=== PATIENT | female | born 1950 | race Caucasian/White ===

== ENCOUNTER 2021-06-19 11:48 | Outpatient (CLI) | payer MEDICARE, SELFPAY ==
--- NOTE | 2021-06-19 12:57 | ECG_ITS ---
Measurements Intervals [facility] Rate: 82 P: 58 NE: 180 QRS: 13 QRSD: 107 T: 11 QT: 390 QTc: 457 Interpretive Statements SINUS RHYTHM POSSIBLE LEFT ATRIAL ENLARGEMENT INCOMPLETE RIGHT BUNDLE BRANCH BLOCK BASELINE ARTIFACT- I, II, III, AVR, AVL BORDERLINE ECG Electronically Signed On 06-19-2021 13:10:51 CDT by Lamberto Zamora D.O.
[2021-06-19 13:25] LABS: Basophils Percent Auto 0.4 % (0.2-1.2); Eosinophils Absolute Auto 0.1 K/mm3 (0-0.3); Eosinophils Percent Auto 2.6 % (0-4.4); Hematocrit 39.9 % (37.0-47.0); Hemoglobin 13.1 g/dL (12.0-15.0); Immature Granulocyte Absolute 0.01 K/mm3 (0.00-0.031); Immature Granulocyte Percent A 0.2 % (0-0.5); Lymphocytes Absolute Auto 1.38 K/mm3 (0.9-3.2); Lymphocytes Percent Auto 27.4 % (18.3-44.2); Mean Corpuscular HGB Conc 32.8 g/dl (32-36); Mean Corpuscular Volume 97.3 fl (80-100); Monocytes Absolute Auto 0.4 K/mm3 (0.1-0.6); Monocytes Percent Auto 8.3 % (2.6-8.5); Neutrophils Absolute Auto 3.1 K/mm3 (1.3-6.7); Neutrophils Percent Auto 61.1 % (45.5-73.1); Platelet Count Result 193 k/mm3 (150-375); Red Cell Distribution Width 12.5 % (11.5-14.5)
[2021-06-19 13:38] LABS: Alanine Aminotransferase 29 U/L (4-35); Albumin Level 4.2 g/dL (3.5-5.1); Alkaline Phosphatase 136 U/L (38-126); Anion Gap 13 mmol/L (8-16); Aspartate Amino Transferase 32 U/L (14-36); Bilirubin,Total 0.6 mg/dL (0.2-1.3); Blood Urea Nitrogen 15 mg/dL (7-17); Calcium 9.5 mg/dL (8.4-10.2); Carbon Dioxide 27 mmol/L (22-30); Chloride 104 mmol/L (98-107); Estimated Glomerular Filt Rate > 60; Glucose 91 mg/dL (65-110); Potassium 3.8 mmol/L (3.4-5.0); Sodium 144 mmol/L (137-145)
[2021-06-19 13:42] LABS: INR 0.8; Prothrombin Time 11.4 Seconds (11.1-14.7)
[2021-06-19 13:43] LABS: Partial Thromboplastin Time 32.1 SECONDS (22.3-36.8)
== END 2021-06-19 11:49 | disposition home or self-care (01) ==
LOC: ANHSURGERY 12:01
PROVIDERS: Visit Provider Urology
DX: Z01.818 Encounter for other preprocedural examination (principal); N81.4 Uterovaginal prolapse, unspecified; E78.5 Hyperlipidemia, unspecified; I45.10 Unspecified right bundle-branch block; Z51.81 Encounter for therapeutic drug level monitoring; Z79.899 Other long term (current) drug therapy
CPT/HCPCS: 36415; 80053; 85025; 85610; 85730; 86850; 86900; 86901; 87086; 87088; 93005

== ENCOUNTER 2021-07-01 01:38 | Day surgery (SDC) | payer MEDICARE, SELFPAY ==
[2021-06-19 12:05] VITALS: BP 182/84; PULSE 92; RESP 16; TEMP 37.2; O2SAT 98
[2021-06-19 12:22] VITALS: BMI 34.4
--- NOTE | 2021-06-26 07:50 | PM.IMHP ---
H&P: HPI History of Present Illness Date/Time: 06/26/21 07:50 Year-old 7 para 3 admitted for robotic total vaginal hysterectomy bilateral salpingo-oophorectomy secondary to uterine prolapse. She has seen Dr. ramirez 2 plan sacral colpopexy as well. She has a prolapse and risks and benefits reviewed in great detail Chief Complaint: uterine prolapse Review of Systems Review of Systems: All systems reviewed & are unremarkable except as noted in HPI and below PMFSH Social History Social History Smoking packs per day: 1 Smoking cigarettes per day: 20.0 Years smoked: 7 Smoking pack-years: 7.00 Smoking status: Former smoker Smoking end date: 06/19/85 Alcohol intake: current Spiritual care concerns: No Meds Home Medications and Allergies Home Medications Medication Instructions Recorded Confirmed Type Lactobac 40-Bifido 3-S.thermop 1 cap PO DAILY 06/19/21 06/19/21 History [Probiotic] cholecalciferol (vitamin D3) 125 mcg PO DAILY 06/19/21 06/19/21 History [Vitamin D3] docusate sodium [Colace] 100 mg PO DAILY 06/19/21 06/19/21 History meloxicam 7.5 mg PO HS 06/19/21 06/19/21 History omeprazole 40 mg PO QAM 06/19/21 06/19/21 History simvastatin 20 mg PO HS 06/19/21 06/19/21 History terbinafine HCl 250 mg PO HS 06/19/21 06/19/21 History thyroid (pork) [Verdi Thyroid] 90 mg PO QAM 06/19/21 06/19/21 History xydwzbb-tldn-qchfz-oreg-capryl 1 cap PO DAILY 06/19/21 06/19/21 History vitamin B comp with C no.4 1 tablet PO DAILY 06/19/21 06/19/21 History Allergies Allergy/AdvReac Type Severity Reaction Status Date / Time adhesive Allergy Mild Itching Verified 06/19/21 12:13 nickel Allergy Mild Itching Verified 06/19/21 12:13 sulfamethoxazole Allergy Mild Itching Verified 06/19/21 12:13 [From Bactrim] trimethoprim [From Bactrim] Allergy Mild Itching Verified 09/01/21 12:13 Exam Const: General: no acute distress Eyes: General: appearance normal, both eyes and all related structures Neck: Neck: supple and no JVD Thyroid: thyroid normal Resp: Effort & Inspection: normal respiratory effort Auscultation: clear to auscultation bilaterally Cardio: Rate: regular rate Rhythm: regular rhythm GI: Inspection: non-distended GI Palp: Yes Soft to palpation, No Tenderness to palpation present (GI) and No Guarding due to palpation present (GI) Auscultation: normal bowel sounds : External Female Exam: normal external appearance Speculum Exam - Vagina: normal appearance of the vagina Bimanual exam- vagina & uterus: uterine shape normal and Uterus displaced ( prolapse is) Skin: General skin exam: no rashes or lesions noted Extrem: General: normal to inspection and no edema Psych: Mental Status: mental status grossly normal Affect: normal affect Assessment and Plan Additional Plan impression: Uterine prolapse Plan: Robotic supracervical hysterectomy bilateral salpingo-oophorectomy
--- NOTE | 2021-06-28 15:56 | WPDANESEPPF ---
Anes - Initial Pre Proc Eval Procedure: Operation Date: 07/01/21 07:30 Proposed Procedures p Robotic Sacrocolpopexy - Vj Xavier MD s Urethral Sling - Vj Xavier MD s Robotic Assisted Supracervical Hysterectomy with Bilateral Salpingo Oophorectomy - Isaiah Ray MD Date/Time: 06/28/21 15:56 Surgeon: Vj Xavier MD Pre Op Diagnosis: complete uterine prolapse , stress incontience Patient Data Age: 71 Gender: F Height: 1.57 m Weight: 85.6 kg Last Vital Signs Temp 37.2 C 06/19/21 12:05 Pulse 92 06/19/21 12:05 Resp 16 06/19/21 12:05 BP 182/84 H 06/19/21 12:05 Pulse Ox 98 06/19/21 12:05 Allergies Allergy/AdvReac Type Severity Reaction Status Date / Time adhesive Allergy Mild Itching Verified 06/19/21 12:13 nickel Allergy Mild Itching Verified 06/19/21 12:13 sulfamethoxazole Allergy Mild Itching Verified 06/19/21 12:13 [From Bactrim] trimethoprim [From Bactrim] Allergy Mild Itching Verified 06/19/21 12:13 Home Medications Medication Instructions Recorded Confirmed Type Lactobac 40-Bifido 3-S.thermop 1 cap PO DAILY 06/19/21 06/19/21 History [Probiotic] cholecalciferol (vitamin D3) 125 mcg PO DAILY 06/19/21 06/19/21 History [Vitamin D3] docusate sodium [Colace] 100 mg PO DAILY 06/19/21 06/19/21 History meloxicam 7.5 mg PO HS 06/19/21 06/19/21 History omeprazole 40 mg PO QAM 06/19/21 06/19/21 History simvastatin 20 mg PO HS 06/19/21 06/19/21 History terbinafine HCl 250 mg PO HS 06/19/21 06/19/21 History thyroid (pork) [Tyrone Thyroid] 90 mg PO QAM 06/19/21 06/19/21 History tghnwxc-bzza-ajowq-oreg-capryl 1 cap PO DAILY 06/19/21 06/19/21 History vitamin B comp with C no.4 1 tablet PO DAILY 06/19/21 06/19/21 History Patient hx anesthesia problems: none Family hx anesthesia problems: none COUNTS INCLUDE 234 BEDS AT THE [facility] Past Medical History Medical History (Updated 06/28/21 @ 15:57 by Juan Nava DO) Hyperlipidemia Hypertension Hypothyroidism Osteoarthritis PONV (postoperative nausea and vomiting) SLE (systemic lupus erythematosus related syndrome) Social History Social History Smoking packs per day: 1 Smoking cigarettes per day: 20.0 Years smoked: 7 Smoking pack-years: 7.00 Smoking status: Former smoker Smoking end date: 06/19/85 Alcohol intake: current Living arrangements: with family Spiritual care concerns: No Anes - Eval Final PreProcedure Day of Procedure 06/28/21 15:56 Patient weight: obese Heart: regular rate and rhythm Lungs: clear to auscultation and normal air movement Airway: Mallampati scale class II Neurological: alert and oriented Last oral intake: >/= 8 hours ASA classification: III Emergent: no Anesthetic plan: proceed Anesthesia type and monitoring: general ETT and standard monitoring Informed Consent: The patient's anesthetic plan and its attendant risks and benefits were discussed with the patient/family/POA. Questions were solicited and answers provided to the satisfaction of the patient/family/POA.
[2021-07-01] VITALS (18 sets, daily range): BP systolic 157–202; BP diastolic 75–105; PULSE 84–110; RESP 13–20; TEMP 36.2–36.6; O2SAT 93–100
--- NOTE | 2021-07-01 06:31 | WPDHPUPDATE1 ---
History and Physical Update Update Date/Time: 07/01/21 06:31 History and Physical has been reviewed, including an updated exam of the patient. There are NO changes in the patient's condition. Risks, benefits, and alternatives have been discussed and questions answered. Patient agrees to proceed with procedure.
[2021-07-01] MEDS: LACTATED RINGERS 1,000 ML 30 ML IV CONT ×2 (06:35→10:28)
[2021-07-01] MEDS: KETOROLAC 15 MG/ML VIAL (*BKC) IV PUSH (06:43)
[2021-07-01] MEDS: ACETAMINOPHEN 500 MG TABLET 1000 MG PO (06:43)
--- NOTE | 2021-07-01 07:19 | PM.IMHP ---
H&P: HPI History of Present Illness Date/Time: 07/01/21 07:19 Uterine prolapse. Previous POP repair ? mesh. No tasha Chief Complaint: uterine prolapse Review of Systems Review of Systems: All systems reviewed & are unremarkable except as noted in HPI and below [facility] Past Medical History Medical History (Updated 07/01/21 @ 07:21 by Vj Xavier MD) Hyperlipidemia Hypertension Hypothyroidism Osteoarthritis PONV (postoperative nausea and vomiting) SLE (systemic lupus erythematosus related syndrome) Social History Social History Smoking packs per day: 1 Smoking cigarettes per day: 20.0 Years smoked: 7 Smoking pack-years: 7.00 Smoking status: Former smoker Smoking end date: 06/19/85 Alcohol intake: current Living arrangements: with family Spiritual care concerns: No Meds Home Medications and Allergies Home Medications Medication Instructions Recorded Confirmed Type Lactobac 40-Bifido 3-S.thermop 1 cap PO DAILY 06/19/21 06/19/21 History [Probiotic] cholecalciferol (vitamin D3) 125 mcg PO DAILY 06/19/21 06/19/21 History [Vitamin D3] docusate sodium [Colace] 100 mg PO DAILY 06/19/21 06/19/21 History meloxicam 7.5 mg PO HS 06/19/21 06/19/21 History omeprazole 40 mg PO QAM 06/19/21 06/19/21 History simvastatin 20 mg PO HS 06/19/21 06/19/21 History terbinafine HCl 250 mg PO HS 06/19/21 06/19/21 History thyroid (pork) [Lomira Thyroid] 90 mg PO QAM 06/19/21 06/19/21 History nryudus-uuhg-ihbed-oreg-capryl 1 cap PO DAILY 06/19/21 06/19/21 History vitamin B comp with C no.4 1 tablet PO DAILY 06/19/21 06/19/21 History Allergies Allergy/AdvReac Type Severity Reaction Status Date / Time adhesive Allergy Mild Itching Verified 06/19/21 12:13 nickel Allergy Mild Itching Verified 06/19/21 12:13 sulfamethoxazole Allergy Mild Itching Verified 06/19/21 12:13 [From Bactrim] trimethoprim [From Bactrim] Allergy Mild Itching Verified 06/19/21 12:13 Exam Const: General: cooperative and healthy appearing HENMT: Head: normal to inspection Mouth: Yes Normal oral and palatal mucosa present Eyes: General: appearance normal, both eyes and all related structures Resp: Effort & Inspection: normal respiratory effort, able to speak in complete sentences and no cough GI: Inspection: normal to inspection : Bimanual Exam- Adnexa, other: No apex supported and vaginal apex descent (+3) Back/Spine/Pelvis: Back: no CVA tenderness Skin: General skin exam: normal color and no rashes or lesions noted Neuro: General: patient oriented x3 Assessment and Plan Assessment and plan (1) Uterine prolapse: Code(s): N81.4 - Uterovaginal prolapse, unspecified Status: Acute Assessment and Plan: Robotic Sacral Colpopexy
--- NOTE | 2021-07-01 07:22 | WPDHPUPDATE1 ---
History and Physical Update Update Date/Time: 07/01/21 07:22 History and Physical has been reviewed, including an updated exam of the patient. There are NO changes in the patient's condition. Risks, benefits, and alternatives have been discussed and questions answered. Patient agrees to proceed with procedure.
[2021-07-01] MEDS: SCOPOLAMINE 1.5 MG PATCH TRANSDERM (07:30)
[2021-07-01] MEDS: FAMOTIDINE 20 MG/2 ML VIAL IV PUSH (07:30)
[2021-07-01] MEDS: ceFAZolin 2 GM/D5W 50 ML 2 GM/50 ML BAG IVPB (07:35)
[2021-07-01] MEDS: metroNIDAZOLE 500 MG/ISO 100ML 500 MG/100 ML BAG 100 MG IVPB (07:40)
--- NOTE | 2021-07-01 08:39 | W.PM.PROC2 ---
Procedure Note - Detailed Date of Procedure 07/01/21 Pre-op Diagnosis complete uterine prolapse , stress incontience Post-op Diagnosis same Procedure Performed Robotic supracervical hysterectomy and bilateral salpingo-oophorectomy Surgeon Isaiah Ray MD Anesthesia general Indications This is a 71-year-old female with complete uterine prolapse admitted for combination procedure with Dr. ramirez Findings Complete prolapse uterus and cervix. Normal-appearing ovaries and tubes Description of Procedure The patient was prepped draped in the normal sterile fashion and placed in the dorsal lithotomy position. Under excellent general endotracheal anesthesia weighted speculum placed in posterior fornix vagina. Anterior lip of the cervix grasped with a single-tooth tenaculum and the Barnes's cannula inserted to the cervix and attached to the single-tooth. This was placed to help with uterine manipulation. A 16 Barbadian catheter was then placed in the bladder and drained of clear urine. Dr. ramirez proceeded to dock the robot. Please see his operative report for full details Once the robot had been docked an area in the left lower quadrant with omentum stuck to the anterior abdominal wall were sharply dissected to help with visualization. The left round ligament was grasped, burned, cut. Anteriorly a bladder flap was formed by sharply dissecting the peritoneum and wrist flexing the bladder caudally from the uterus and cervix to the opposite round ligament. This was then clamped, burned, cut. Next the infundibulopelvic structures on the left were clamped, burned, cut and brought to the level of the previously cut round ligament. In like fashion remove the right ovary and tube the infundibulopelvic structures were skeletonized. They were clamped, burned, cut and brought to the level previously cut round ligament. Next the cardinal and broad ligaments on the left were serially skeletonized clamped burned and cut. These were brought down the lateral edge of the uterus until the vessels on the left could be seen. There were large and tortuous and these were individually clamped,, cut. In like fashion the cardinal ligaments on the right were serially skeletonized clamped, burned, cut and brought down the lateral edge of the uterus and cervix until the vessels on the right could be these were individually clamped, burned, cut. Blanching of the uterus was noted and a supracervical incision made. The uterus ovaries and tubes were then placed in an Endo-Catch. Hemostasis was assured and blood loss estimated at25cc to this point. There were no complications up to this point. Dr. ramirez took over from there. Please see his operative report for the remainder of the procedure Estimated Blood Loss 25 Drains No Packing No Pathology yes Complications No immediate complications Condition stable Disposition no change
[2021-07-01] MEDS: BUPIVACAINE/EPINEPHRINE 0.5% 30 ML VIAL 8 ML INFILTRATE (10:00)
--- NOTE | 2021-07-01 10:14 | W.PM.PROC2 ---
Procedure Note - Detailed Date of Procedure 07/01/21 Pre-op Diagnosis complete uterine prolapse , female perineal laxity Post-op Diagnosis same Procedure Performed robotic assisted laparoscopic sacral colpopexy perineal repair /perineoplasty cystoscopy Surgeon Vj Xavier MD Anesthesia general Indications this is a woman with uterine prolapse, stress incontinence, and female perineal laxity. They present for surgery. She has had a previous vaginal repair with mesh augmentation. They understand risks of bleeding, infection, damage to surrounding organs, damage to the bowel or urinary tract, diskitis, recurrence of prolapse, new onset stress incontinence, vaginal or urinary tract mesh exposure, obstructive voiding requiring secondary procedure, hip and leg pain, dyspareunia, and other perioperative intraoperative and postoperative complications. They agreed to proceed. Findings See dictation Description of Procedure She was correctly identified. Informed consent is obtained. She was brought to the operating room. She was given general anesthesia. She was placed in the dorsal lithotomy position. All pressure points were padded. She was given appropriate perioperative antibiotics. A time-out was performed. I anesthetized the skin 3 fingerbreadths cephalad to the umbilicus. I incised the skin. I grasped the fascia with Ronna clamps. I entered the fascia sharply in a Hason type technique. I placed Vicryl sutures for later fascial closure. the midline trocar was placed. Under direct vision 2 additional trocars were placed in the right and left upper quadrant. She was placed in steep Trendelenburg. The robot was docked. I turned her over to her warp tying machine tender for their portion of the procedure. That will be dictated in a separate op note. I then sat at the console. With a Sizer in the vagina I created a plane on the anterior and posterior vaginal wall for several cm taking great care not to injure the vagina bladder or rectum. There was quite a bit of scarring on the anterior vaginal wall. Mesh was encountered. It was not excised or disturbed. I also encountered mesh on the posterior vaginal wall as well. There was no sign of any bladder or vaginal injury. There is no sign of any rectal injury. I introduced the mesh into the abdomen. I sewed the anterior leaf of the mesh on the anterior vaginal wall and the posterior leaflet of mesh on the posterior vaginal wall with multiple sutures of 2 0 Lincoln-Julien taking great care not to go through and through. I reflected the colon laterally. I opened up the posterior peritoneum over the sacral promontory and carried this incision into the cul-de-sac. I freed up the edges for later retroperitonealization of the mesh. I located the anterior longitudinal ligament of the sacrum. It was cleaned off of all fatty tissues. I tensioned my mesh appropriately. I went to the bedside to perform a vaginal exam. There was good apical support without undue tension. I then sewed the proximal leaflet of mesh onto the anterior longitudinal ligament with several sutures of 2 0 Lincoln-Julien. I then used a 2 0 Monocryl to meticulously retroperitonealized all mesh. I allowed the colon to go back into its normal anatomic location. There is no signs of any impingement. The specimen was extracted. The abdomen was exited. Fascial sutures were closed. Wounds were irrigated. Skin was closed with Monocryl as well as surgical glue. She was then repositioned and prepped for perineal surgery. I anesthetized the mona-shaped area of skin on the perineum. I removed this area of skin. I performed a classic perineal repair with 0 Vicryl suture. I used a 2 0 Vicryl to close the mucosa. There was excellent perineal support without undue narrowing of the vagina. I then performed cystoscopy. The bladder was examined. There is no surgical artifact or tumors within the bladder. Both ureteral orifices
[2021-07-01] MEDS: ONDANSETRON INJ 4 MG/2 ML VIAL IV PUSH (10:42)
[2021-07-01] MEDS: fentaNYL CITRATE INJ (*CRX) 100 MCG/2 ML VIAL 25 MCG IV PUSH ×5 (10:43→12:12)
[2021-07-01] MEDS: diphenhydrAMINE HCl INJ 50 MG/ML VIAL 25 MG IV PUSH ×2 (11:04→11:17)
[2021-07-01] MEDS: oxyCODONE HCL (*CRX) 5 MG TAB IR PO (13:09)
[2021-07-01] MEDS: LABETALOL HCL INJ 100 MG/20 ML VIAL IV PUSH (14:16)
--- NOTE | 2021-07-01 15:00 | SUR.PHASEII ---
1500 -dr. brand called and aware of pt's b/p and hr after labetolol. b/p 174/100 hr 102. no orders received at this time. pt encouraged to call [facility] doctor once at home to follow up with elevated b/p. pt verbalized understanding
== END 2021-07-01 15:35 | disposition home or self-care (01) ==
PROVIDERS: Obstetrics & Gynecology; Visit Provider Urology
PROC: (CPT 57425; principal; 2021-07-01 07:30)
PROC: (CPT 58542; 2021-07-01 07:30)
DX: N81.3 Complete uterovaginal prolapse (principal); N39.3 Stress incontinence (female) (male); N80.0 Endometriosis of uterus; D25.1 Intramural leiomyoma of uterus; I10 Essential (primary) hypertension; E78.5 Hyperlipidemia, unspecified; E03.9 Hypothyroidism, unspecified; M32.9 Systemic lupus erythematosus, unspecified; E66.9 Obesity, unspecified; Z68.34 Body mass index [BMI] 34.0-34.9, adult
CPT/HCPCS: 57425; 58542; S2900 ×2; 88307; A9270; C1781; C9290; J0690; J1100; J1170; J1200; J1885; J2250; J2405; J2704; J2710; J3010; J7030; J7120